=== PATIENT | female | born 1995 | race Caucasian/White ===

== ENCOUNTER 2020-08-02 22:10 | Emergency (ER) | payer MEDICAID ==
[~2020-08-02] VITALS: Ht 154.9 cm; Wt 97.1 kg
[~2020-08-02 22:10] MED LIST: FLEXERIL PO; FLUOXETINE HCL60 MG PO; GLUCOPHAGE XR500 MG PO; HALOPERIDOL 1 MG1 MG PO; HYDROCODONE-ACE15 ML PO; INDERAL60 MG PO; LATUDA40 MG PO; METHOCARBAMOL500 M2 PO; NAPROXEN375 MG PO; PROAIR HFA8.5 GM INH; PROZAC20 MG PO; TOPAMAX 25 MG T25 M1 PO; VENTOLIN HFA 1818 GM INH; VISTARIL 25 MG25 M1 PO
[2020-08-02 23:05] LABS: URINE BILIRUBIN NEGATIVE (Negative); URINE BLOOD NEGATIVE (Negative); URINE CLARITY CLEAR; URINE COLOR YELLOW; URINE GLUCOSE-RANDOM NEGATIVE (Negative); URINE KETONES NEGATIVE (Negative); URINE LEUKOCYTES-REFLEX TRACE (Negative); URINE NITRITE-REFLEX NEGATIVE (Negative); URINE PROTEIN NEGATIVE (Negative); URINE SPECIFIC GRAVITY 1.025 (1.005-1.030)
[2020-08-02 23:23] LABS: SQUAMOUS >10 Many /LPF (0-3)
[2020-08-02 23:25] LABS: CASTS None Seen /LPF (None Seen)
[2020-08-02 23:27] LABS: CRYSTALS None Seen /LPF (None Seen); URINE RBC None Seen /HPF (0-2); URINE WBC-REFLEX 6-15 Few /HPF (0-5)
[2020-08-02 23:30] LABS: HEMATOCRIT 27.5 % (37.0-47.0); HEMOGLOBIN 8.7 gm/dL (12.0-15.0); MCH 25.1 pg (26.0-34.0); MCHC 31.7 g/dL (28.0-37.0); MCV 79.4 fL (80.0-100.0); MPV 9.8 fl. (7.2-11.1); RBC 3.47 mil/uL (4.20-5.00); RDW-CV 15.4 % (10.5-14.5); WBC 12.9 thou/uL (4.0-11.0)
[2020-08-02 23:40] LABS: CALCIUM 8.3 mg/dL (8.5-10.1); CREATININE 0.4 mg/dL (0.6-1.3); POTASSIUM 3.5 mmol/L (3.5-5.1)
[2020-08-02 23:44] LABS: ALBUMIN 2.1 g/dL (3.4-5.0); TOTAL BILIRUBIN 0.3 mg/dL (<0.1-1.0); TOTAL PROTEIN 6.5 g/dL (6.4-8.2)
[2020-08-03] MEDS ORDERED: PEPCID40 MG PO (00:24)
[2020-08-03 00:31] VITALS: BP 98/68
== END 2020-08-03 00:31 | disposition home or self-care (01) ==
LOC: M.ERS 22:10
PROVIDERS: Personal Emergency Response Attendant
DX: O99.012 Anemia complicating pregnancy, second trimester (principal); O99.612 Diseases of the digestive system complicating pregnancy, second trimester; K92.9 Disease of digestive system, unspecified; Z3A.27 27 weeks gestation of pregnancy

== ENCOUNTER 2020-09-22 00:39 | Emergency (ER) | payer MEDICAID ==
[~2020-09-22] VITALS: Ht 154.9 cm; Wt 100.2 kg
[~2020-09-22 00:39] MED LIST changes: +PEPCID40 MG PO
[2020-09-22] MEDS ORDERED: PNV 29-1 TABLE1 EACH PO (01:00)
[2020-09-22 01:33] LABS: URINE BLOOD NEGATIVE (Negative); URINE CLARITY CLEAR; URINE COLOR YELLOW; URINE GLUCOSE-RANDOM TRACE (Negative); URINE KETONES 1+ (Negative); URINE LEUKOCYTES-REFLEX NEGATIVE (Negative); URINE NITRITE-REFLEX NEGATIVE (Negative); URINE PROTEIN NEGATIVE (Negative); URINE SPECIFIC GRAVITY >= 1.030 (1.005-1.030)
[2020-09-22 01:34] LABS: URINE BILIRUBIN 1+ (Negative)
[2020-09-22 01:35] LABS: ICTOTEST (BILI CONFIRMATORY) Negative (Negative)
[2020-09-22 01:38] LABS: ABSOLUTE LYMPHOCYTES 2.7 thou/uL (0.8-5.3); ABSOLUTE MONOCYTES 0.6 thou/uL (0.0-1.2); ABSOLUTE NEUTROPHILS 6.8 thou/uL (1.6-8.1); BASOPHILS 0.4 %; EOSINOPHILS 0.4 %; HEMATOCRIT 24.3 % (37.0-47.0); LYMPHOCYTES 26.3 %; MCH 24.3 pg (26.0-34.0); MCHC 32.8 g/dL (28.0-37.0); MCV 74.2 fL (80.0-100.0); MONOCYTES 5.7 %; MPV 10.7 fl. (7.2-11.1); NUCLEATED RBCS 0 /100WBC; PLATELET COUNT* 195 thou/uL (150-400); POLYS 67.2 %; RBC 3.28 mil/uL (4.20-5.00); RDW-CV 15.2 % (10.5-14.5); WBC 10.1 thou/uL (4.0-11.0)
[2020-09-22 01:54] LABS: ANION GAP 10 mmol/L (7-16); BUN 7 mg/dL (7-18); CALCIUM 8.4 mg/dL (8.5-10.1); CHLORIDE 106 mmol/L (98-107); CO2 22 mmol/L (21-32); CREATININE 0.5 mg/dL (0.6-1.3); GLUCOSE 86 mg/dL (70-99); POTASSIUM 3.4 mmol/L (3.5-5.1); SODIUM 138 mmol/L (136-145)
[2020-09-22 01:59] LABS: ALBUMIN 2.2 g/dL (3.4-5.0); ALKALINE PHOSPHATASE 90 U/L (46-116); SGOT 11 U/L (15-37); TOTAL BILIRUBIN 0.3 mg/dL (<0.1-1.0); TOTAL PROTEIN 6.9 g/dL (6.4-8.2)
[2020-09-22 02:09] LABS: SGPT < 6 U/L (30-65)
[2020-09-22 03:05] VITALS: BP 110/70
== END 2020-09-22 03:05 | disposition home or self-care (01) ==
LOC: M.ERS 00:39
PROVIDERS: Personal Emergency Response Attendant
DX: O26.893 Other specified pregnancy related conditions, third trimester (principal); R10.30 Lower abdominal pain, unspecified; O24.913 Unspecified diabetes mellitus in pregnancy, third trimester; Z3A.36 36 weeks gestation of pregnancy